=== PATIENT | female | born 1995 | race Caucasian/White ===

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

== ENCOUNTER 2017-11-30 11:12 | Emergency (ER) | payer BC ==
[~2017-11-30] VITALS: Ht 170.2 cm; Wt 51.8 kg
[~2017-11-30 11:12] MED LIST: CLR10 PO; FLUT0.15 NAE; OSEL75CA23 PO
[2017-11-30 11:15] VITALS: TEMP 36.5; Ht 170.2 cm; Wt 51.8 kg
[2017-11-30] MEDS ORDERED: ONDANSETRON INJ 2 MG/ML 2 ML VIAL IV STA (11:29)
[2017-11-30] MEDS ORDERED: SODIUM CHLORIDE 0.9% 1000ML 1,000 ML IV STA (11:29)
[2017-11-30 11:32] VITALS: O2SAT 97
[2017-11-30] MEDS ORDERED: SNG10 PO (11:43)
[2017-11-30 11:44] LABS: BASO % 0.2 %; BASO ABS # 0.03 K/uL (0-0.2); EOS % 1.2 %; EOS ABS # 0.16 K/uL (0-0.5); HEMATOCRIT 42.8 % (37-47); HEMOGLOBIN 15.4 g/dL (12.0-16.0); IG# 0.04 K/uL (0.00-0.02); LYMPH ABS # 1.85 K/uL (1.2-3.4); MEAN CELL VOLUME 83.9 fL (80-100); MEAN CORPUSCULAR HEMOGLOBIN 30.2 pg (25-34); MEAN PLATELET VOLUME 9.2 fL (7.4-10.4); MONO % 5.5 %; MONO ABS # 0.73 K/uL (0.11-0.59); NEUT % 78.8 %; NEUT ABS # 10.38 K/uL (1.4-6.5); PLATELET COUNT 269 K/uL (130-400); RED CELL DISTRIBUTION WIDTH CV 12.9 % (11.5-14.5); RED CELL DISTRIBUTION WIDTH SD 39.3 fL (36.4-46.3); WHITE BLOOD COUNT 13.19 K/uL (4.8-10.8)
--- NOTE | 2017-11-30 11:50 | EMERGENCY ROOM VISIT NOTE ---
History First contact with patient: 11:17 Chief Complaint: TACHYCARDIA Stated Complaint: DIZZY, HIGH HEART RATE, VOMITING History of Present Illness The patient is a 22 year old female who presents to the Emergency Room with complaints of tachycardia, chest discomfort, and nausea with vomiting. The patient states last night, she was drinking several rockstar energy drinks and taking pre-workout shots. She states each shot had approximately 400 mg of caffeine she took 3 of them. She was also drinking "a lot of gin". The patient stopped drinking at approximately 2 AM. Upon awakening at 10 AM this morning, the patient has been vomiting clear emesis. She states she has been unable to tolerate food or liquids. She did attempt to drink water, however immediately vomited it up. She describes some dyspnea associated with the tachycardia, a heavy sensation of her heart pounding in her chest and epigastric pain. She does report a headache and dizziness with standing. She denies any recent history of travel or history of blood clots. She is currently taking the Depo shot for control. She denies syncope. She does report a history of tachycardia, and states her heart rate is normally between 102 and 10 8 bpm. She normally does not drink this heavily, however does report drinking caffeine consistently throughout the day. She states "I am addicted to caffeine". She has seen a tabulating clerk here in [place] with [facility] cardiology, but states that was approximately 2 years ago when she was diagnosed with the tachycardia. Review of Systems A complete 10 point review of systems was reviewed with the patient with pertinent positives and negatives as per history of present illness. All else were negative. Past Medical/Surgical History Medical Problems: (1) No chronic problems Family History No pertinent family history Social History Smoking Status: Never Smoker Alcohol Use: occasionally Drug Use: marijuana Housing Status: lives with roommate Occupation Status: [employer] Current/Historical Medications Scheduled Montelukast Sod (Montelukast Sodium), Unknown Dose PO DAILY Scheduled PRN Fluticasone Propionate (Nasal) (Flonase Allergy Relief), 1 SPRAY ISHMAEL DAILY PRN for Nasal Congestion Loratadine (Claritin), 10 MG PO DAILY PRN for ALLERGIC REACTION Physical Exam Vital Signs Date Time Temp Pulse Resp B/P (MAP) Pulse Ox O2 Delivery O2 Flow Rate FiO2 11/30/17 14:08 106 16 119/70 100 11/30/17 13:14 95 12 112/74 100 Room Air 11/30/17 12:22 101 11/30/17 12:09 90 16 120/68 100 Room Air 11/30/17 11:42 97 Room Air 11/30/17 11:32 97 Room Air 11/30/17 11:15 36.5 116 18 125/71 97 Room Air Physical Exam VITALS: Vitals are noted on the nurse's note and reviewed by myself. Vital signs stable. GENERAL: This is a thin 22-year-old white female, in no acute distress, nondiaphoretic, well-developed well-nourished. SKIN: The skin was without rashes, erythema, edema, or bruising. There is no tenting of the skin. Capillary reflex less than 2 seconds. HEAD: Normocephalic atraumatic. EARS: External auditory canals clear, tympanic membranes pearly bermudez without erythema or effusion bilaterally. EYES: Pupils equal round and reactive to light and accommodation. Conjunctivae without injection, sclerae without icterus. Extraocular movements intact. NOSE: Patent, turbinates without inflammation or discharge. No sinus tenderness. MOUTH: Mucous membranes moist. Tonsils are not enlarged. Pharynx without erythema or exudate. Uvula midline. Airway patent. Tongue does not deviate. NECK: Supple without nuchal rigidity. No lymphadenopathy. No thyromegaly. Cervical spine is nontender. No JVD. HEART: Regular rate and rhythm without murmurs gallops or rubs. The heart rate is elevated at approximately 1 15 bpm. LUNGS: Clear to auscultation bilaterally without wheezes, rales or rhonchi. No dullness to percussion. No retractions or accessory muscle use. ABDOMEN: Positive bowel sounds x 4. Normal tympanic percussion. Mild epigastric tenderness. The abdomen was otherwise soft, nontender, without masses or organomegaly. Moore sign negative. No guarding or rebound tenderness. MUSCULOSKELETAL: No muscle atrophy, erythema, or edema noted. Full range of motion without joint tenderness in all extremities. No tenderness to palpation. Normal gait. Strength 5/5 throughout. NEURO: Patient was alert and oriented to person place and time. Normal sensation to light and sharp touch. Deep tendon reflexes 2+ throughout. No focal neurological deficits. Medical Decision & Procedures ER Provider Diagnostic Interpretation: CHEST 2 VIEWS ROUTINE HISTORY: 22 years-old Female tachycardia, chest pain acute atypical chest pain COMPARISON: Chest radiograph 10/28/2016 TECHNIQUE: PA and lateral views of the chest FINDINGS: Cardiomediastinal and hilar silhouettes are within normal limits. There is no pneumothorax, pleural effusion, focal airspace consolidation or overt pulmonary edema. The bones of the chest appear grossly intact. IMPRESSION: No acute process. The above report was generated using voice recognition software. It may contain grammatical, syntax or spelling errors. Electronically signed by: Dean Mccarthy M.D. 11/30/2017 12:07 PM Dictated Date/Time: 11/30/2017 12:07 PM Laboratory Results 11/30/17 11:33 Red Blood Count 5.10, Mean Corpuscular Volume 83.9, Mean Corpuscular Hemoglobin 30.2, Mean Corpuscular Hemoglobin Concent 36.0, Mean Platelet Volume 9.2, Neutrophils (%) (Auto) 78.8, Lymphocytes (%) (Auto) 14.0, Monocytes (%) (Auto) 5.5, Eosinophils (%) (Auto) 1.2, Basophils (%) (Auto) 0.2, Neutrophils # (Auto) 10.38, Lymphocytes # (Auto) 1.85, Monocytes # (Auto) 0.73, Eosinophils # (Auto) 0.16, Basophils # (Auto) 0.03 11/30/17 11:33 Test 11/30/17 11:29 11/30/17 11:33 Creatine Kinase MB Ratio (0-3.0) White Blood Count 13.19 K/uL (4.8-10.8) Red Blood Count 5.10 M/uL (4.2-5.4) Hemoglobin 15.4 g/dL (12.0-16.0) Hematocrit 42.8 % (37-47) Mean Corpuscular Volume 83.9 fL (80-100) Mean Corpuscular Hemoglobin 30.2 pg (25-34) Mean Corpuscular Hemoglobin Concent 36.0 g/dl (32-36) Platelet Count 269 K/uL (130-400) Mean Platelet Volume 9.2 fL (7.4-10.4) Neutrophils (%) (Auto) 78.8 % Lymphocytes (%) (Auto) 14.0 % Monocytes (%) (Auto) 5.5 % Eosinophils (%) (Auto) 1.2 % Basophils (%) (Auto) 0.2 % Neutrophils # (Auto) 10.38 K/uL (1.4-6.5) Lymphocytes # (Auto) 1.85 K/uL (1.2-3.4) Monocytes # (Auto) 0.73 K/uL (0.11-0.59) Eosinophils # (Auto) 0.16 K/uL (0-0.5) Basophils # (Auto) 0.03 K/uL (0-0.2) RDW Standard Deviation 39.3 fL (36.4-46.3) RDW Coefficient of Variation 12.9 % (11.5-14.5) Immature Granulocyte % (Auto) 0.3 % Immature Granulocyte # (Auto) 0.04 K/uL (0.00-0.02) Anion Gap 6.0 mmol/L (3-11) Est Creatinine Clear Calc Drug Dose 94.1 ml/min Estimated GFR () 126.8 Estimated GFR (Non- 109.4 BUN/Creatinine Ratio 10.0 (10-20) Calcium Level 9.1 mg/dl (8.5-10.1) Total Bilirubin 0.6 mg/dl (0.2-1) Aspartate Amino Transf (AST/SGOT) 15 U/L (15-37) Alanine Aminotransferase (ALT/SGPT) 19 U/L (12-78) Alkaline Phosphatase 75 U/L (45-117) Creatine Kinase MB 0.6 ng/ml (0.5-3.6) Troponin I < 0.015 ng/ml (0-0.045) Total Protein 8.4 gm/dl (6.4-8.2) Albumin 4.3 gm/dl (3.4-5.0) Globulin 4.1 gm/dl (2.5-4.0) Albumin/Globulin Ratio 1.0 (0.9-2) Lipase 139 U/L (73-393) Medications Administered Medications (Trade) Dose Ordered Sig/[place] Route Start Time Stop Time Status Last Admin Dose Admin Sodium Chloride 1,000 ml @ 999 mls/hr Q1H1M STAT IV 11/30/17 11:29 11/30/17 12:29 DC 11/30/17 11:41 999 MLS/HR Ondansetron HCl (Zofran Inj) 4 mg NOW STAT IV 11/30/17 11:29 11/30/17 11:33 DC 11/30/17 11:41 4 MG Sodium Chloride 500 ml @ 999 mls/hr Q31M STAT IV 11/30/17 12:49 11/30/17 13:19 DC 11/30/17 12:55 999 MLS/HR ECG Per My Interpretation Indication: chest pain, tachycardia Rate (beats per minute): 111 Rhythm: sinus tachycardia Findings: T-wave inversion, no acute ischemic change Comparison ECG Date: 10/10/17 Change: no significant change Change: EKG 09/2016 shows T wave inversions in lead III and V3. This is consistent with today's EKG, however previous EKG has a ventricular rate of 121, current EKG rate of 111. ED Course The patient was seen and evaluated as above. EKG performed. This was interpreted by myself as above. No QT prolongation noted. IV access obtained, labs drawn. Patient was given 1 L normal saline solution and 4 mg Zofran. Chest x-ray performed. This was reviewed by myself and radiologist as above. The patient was reassessed. Her heart rate has decreased to the 80s. She is feeling much better, however remains slightly nauseated and dizzy. She is given a 500 cc bolus of normal saline solution at this time. The patient was reassessed. She feels well enough for discharge. I discussed the case with Dr. Angeles. Discharge instructions reviewed, the patient was discharged home in good condition. Medical Decision This is a 22-year-old female patient presents to the emergency department, ambulatory, after a night of heavily drinking caffeinated beverages and energy drinks. The patient states she has a known history of tachycardia, and her heart rate normally is between 102 and 108 bpm. The patient states when she awoke this morning her heart was pounding, and she had some mildly associated dyspnea with several episodes of vomiting. While here in the emergency department, her symptoms improved with IV fluids and Zofran. EKG did show sinus tachycardia, but no acute changes. EKG was consistent with past EKG. Labs that show slightly elevated white blood cell count of 13,000. I suspect this is related to the vomiting. No anemia or thrombocytopenia noted. CMP did not show any significantly abnormal renal, hepatic function, or electrolytes. Potassium was normal. Lipase was negative. Chest x-ray did not show any acute cardiopulmonary findings. The patient was unable to provide a urine sample. Suspect the symptoms are to the alcohol had consumed last night. Her symptoms did improve while here in the emergency department. She will be discharged home with instructions for plenty of fluids and rest today. She was educated regarding not consuming alcohol or caffeine in large quantities in the future, especially due to the tachycardia. I did encourage her to have her thyroid checked by her PCP and closely monitored due to the history of tachycardia. The patient verbalized understanding. All questions answered to patient's satisfaction. In the evaluation and treatment of this patient, the following differential diagnoses were considered: Tachycardia, cardiomegaly, cardiac etiology, ACS, DVT , PE, infection, endocarditis, pericarditis, hypoglycemia, Barbiturate Toxicity , Benzodiazepine Toxicity, Depression and Suicidality, Diabetic Ketoacidosis, Encephalitis, Ethylene Glycol Toxicity, Meningitis, Metabolic Acidosis, Opioid Toxicity, CVA, TIA, Intracranial Abnormality, Acute Psychosis, Amongst Others. The chart was completed utilizing [employer] Speech voice recognition software. Grammatical errors, random word insertions, pronoun errors, and incomplete sentences are an occasional consequence of this system due to software limitations, ambient noise, and hardware issues. Any formal questions or concerns about the content, text, or information contained within the body of this dictation should be directly addressed to the provider for clarification. Medication Reconcilliation Current Medication List: was personally reviewed by me Blood Pressure Screening Patient's blood pressure: Normal blood pressure Impression Primary Impression: Tachycardia Additional Impression: Caffeine abuse Departure Information Dispostion Home / Self-Care Condition GOOD Referrals Nasrin SNELL M.D. (PCP) Patient Instructions My [facility] Additional Instructions You were seen in the ED today for tachycardia, nausea, vomiting. I suspect this is related to your heavy alcohol and caffeine intake last evening. You were given IV fluids and antiemetics. Drink plenty of fluids today and stay well-hydrated. Acetaminophen(Tylenol) may be used for fever or pain. Use 1000mg every six hours as needed. Avoid using more than 3000mg in a 24 hour period. Limit caffeine and alcohol in the future to more reasonable amounts. With your history of tachycardia, I recommend NO MORE THAN 1 caffeinated beverage/serving per day. Follow-up with your PCP within one week. Ensure you have had your thyroid tested and gets tested regularly due to the tachycardia. Return immediately to the ED for worsening pain, dyspnea, passing out, persistent elevated heart rate greater than is normal for you, numbness or tingling, intractable vomiting, or other concerns. Problem Qualifiers
[2017-11-30 12:01] LABS: ALBUMIN 4.3 gm/dl (3.4-5.0); ALT/SGPT 19 U/L (12-78); AST/SGOT 15 U/L (15-37); BLOOD UREA NITROGEN 8 mg/dl (7-18); CALCIUM 9.1 mg/dl (8.5-10.1); CARBON DIOXIDE 28 mmol/L (21-32); CREATININE 0.78 mg/dl (0.60-1.20); GLUCOSE 126 mg/dl (70-99); POTASSIUM 3.8 mmol/L (3.5-5.1); SODIUM 139 mmol/L (136-145)
[2017-11-30 12:06] LABS: ALKALINE PHOSPHATASE 75 U/L (45-117); CKMB 0.6 ng/ml (0.5-3.6); TOTAL PROTEIN 8.4 gm/dl (6.4-8.2)
--- NOTE | 2017-11-30 12:09 | DIAGNOSTIC IMAGING REPORT ---
CHEST 2 VIEWS ROUTINE HISTORY: 22 years-old Female tachycardia, chest pain acute atypical chest pain COMPARISON: Chest radiograph 10/28/2016 TECHNIQUE: PA and lateral views of the chest FINDINGS: Cardiomediastinal and hilar silhouettes are within normal limits. There is no pneumothorax, pleural effusion, focal airspace consolidation or overt pulmonary edema. The bones of the chest appear grossly intact. IMPRESSION: No acute process. The above report was generated using voice recognition software. It may contain grammatical, syntax or spelling errors. Electronically signed by: Dean Mccarthy M.D. 11/30/2017 12:07 PM Dictated Date/Time: 11/30/2017 12:07 PM
[2017-11-30] MEDS ORDERED: SODIUM CHLORIDE 0.9% 500ML 500 ML IV STA (12:49)
[2017-11-30 14:08] VITALS: BP 119/70; PULSE 106; O2SAT 100
== END 2017-11-30 14:11 | disposition home or self-care (01) ==
LOC: C.EDB 11:14
DX: R00.0 Tachycardia, unspecified (principal); F15.10 Other stimulant abuse, uncomplicated; R11.2 Nausea with vomiting, unspecified; Z86.79 Personal history of other diseases of the circulatory system